=== PATIENT | female | born 1940 | race American Indian/Alaskan Native ===

== ENCOUNTER 2017-01-28 16:04 | Outpatient (CLI) | payer MEDICARE ==
--- NOTE | 2017-01-29 08:42 | Mammography Report ---
BILATERAL MAMMOGRAM: FINDINGS: The breast tissue is heterogeneously dense, which could obscure detection of small masses (approximately 50%-75% glandular). No mass, distortion, suspicious calcification, or skin change is seen. CAD was utilized. IMPRESSION: Negative mammogram. There is no mammographic evidence of malignancy. RECOMMENDATION: Follow-up per ACS guidelines. BI-RADS CATEGORY: 1 = Negative ACR BI-RADS MAMMOGRAPHIC CODES: 0 = Needs additional imaging evaluation; 1 = Negative; 2 = Benign; 3 = Probably benign; 4 = Suspicious; 5 = Malignant; 6 = Known biopsy-proven malignancy COMMENT: 1. Dense breast tissue, i.e., adenosis, fibrocystic changes, etc., may obscure an underlying neoplasm. 2. Approximately 10% of cancers are not detected with mammography. 3. A negative mammography report should not delay biopsy if a clinically suspicious mass is present. COMMENT: Patient follow-up letters are generated in [facility].
== END 2017-01-28 16:05 | disposition home or self-care (01) ==
LOC: SPVWC 16:04
PROVIDERS: ATTEND Family Medicine
DX: Z12.31 Encounter for screening mammogram for malignant neoplasm of breast (principal)
CPT/HCPCS: 77067; G0202

== ENCOUNTER 2017-02-19 11:50 | Day surgery (SDC) | payer MEDICARE ==
[~2017-02-19 11:50] MED LIST: IOPIDINE ONE; MYDRIACYL ONE; NEOFRIN ONE
[2017-02-19] MEDS ORDERED: NEOFRIN OD ONE (12:12)
[2017-02-19] MEDS ORDERED: IOPIDINE OD ONE (12:12)
[2017-02-19] MEDS ORDERED: MYDRIACYL OD ONE (12:12)
[2017-02-19 12:31] VITALS: BP 130/72
[2017-02-19] MEDS ORDERED: IOPIDINE OU ONE (12:48)
== END 2017-02-19 12:51 | disposition home or self-care (01) ==
LOC: OR 11:50
PROVIDERS: ATTEND Specialist
DX: H26.491 Other secondary cataract, right eye (principal)